=== PATIENT | female | born 1990 | race Caucasian/White ===

== ENCOUNTER 2019-06-20 18:47 | Emergency (ER) | payer SELFPAY ==
--- NOTE | 2019-06-20 19:00 | NUR ---
NO ANSWER IN ER LOBBY
--- NOTE | 2019-06-20 19:00 | NUR ---
PATIENT LEFT WITHOUT BEING SEEN BY DR. MORRIS. NO FURTHER CARE PROVIDED FOR PATIENT.
--- NOTE | 2019-06-20 19:05 | NUR ---
CALLED FOR THE SECOND TIME NO RESPONSE
--- NOTE | 2019-06-20 19:10 | NUR ---
CALLED FOR THE THIRD TIME NO RESPONSE
== END 2019-06-20 19:00 | disposition left against medical advice (07) ==
LOC: MED 18:47
DX: Z53.21 Procedure and treatment not carried out due to patient leaving prior to being seen by health care provider (principal)